=== PATIENT | male | born 1950 | race Caucasian/White ===

== ENCOUNTER 2021-10-08 20:23 | Emergency (ER) | payer MEDICARE, OTHER ==
[2021-10-08] MEDS ORDERED: Bacitracin 1 PK ONE (20:51)
== END 2021-10-08 22:47 | disposition home or self-care (01) ==
LOC: NAV ERS 20:23
DX: S61.411A Laceration without foreign body of right hand, initial encounter (principal); S39.012A Strain of muscle, fascia and tendon of lower back, initial encounter; H10.10 Acute atopic conjunctivitis, unspecified eye; E11.9 Type 2 diabetes mellitus without complications; I10 Essential (primary) hypertension; Z79.4 Long term (current) use of insulin; W19.XXXA Unspecified fall, initial encounter
CPT/HCPCS: 70450; 71045; 72131; 72192; 93005; 94760